=== PATIENT | male | born 1945 | race Caucasian/White ===

== ENCOUNTER 2020-11-16 10:23 | Inpatient (IN) | payer BC, OTHER ==
[~2020-11-16] VITALS: Ht 185.4 cm; Wt 74.8 kg
--- NOTE | 2020-11-16 10:30 | NUR ---
TO ER BED 1, C/O BACK PAIN P/S 610 S/P FALL 2 MOS AGO, AAOX4, BREATHING EVEN AND NON LABORED. AWAITING MD JENKINS
[2020-11-16] MEDS ORDERED: IV NS 0.9% 1,000 ML IV ONE (11:00)
--- NOTE | 2020-11-16 11:08 | NUR ---
SPOKE TO LISANDRO-DAUGHTER FOR UPDATE
[2020-11-16 11:12] LABS: BASOPHILS % (AUTO) 0.4 % (0.0-2.0); EOSINOPHILS % (AUTO) 0.4 % (0.0-6.0); HEMATOCRIT 46 % (39-51); HEMOGLOBIN 15.3 g/dL (13.5-17.5); LYMPHOCYTES # (AUTO) 1.7 K/uL (0.8-4.8); LYMPHOCYTES % (AUTO) 18.1 % (20.0-44.0); MEAN CORPUSCULAR HGB CONC 34 g/dl (31.0-36.0); MEAN CORPUSCULAR VOLUME 93 fL (80-96); MONOCYTES # (AUTO) 0.5 K/uL (0.1-1.30); MONOCYTES % (AUTO) 5.6 % (2.0-12.0); NEUTROPHILS # (AUTO) 7.2 K/uL (1.8-8.9); NEUTROPHILS % (AUTO) 75.5 % (43.0-81.0); PLATELET COUNT (AUTO) 412 K/uL (150-450); RED BLOOD CELL COUNT(AUTO) 4.94 MIL/uL (4.5-6.0); WHITE BLOOD COUNT (AUTO) 9.5 K/uL (4.3-11.0)
[2020-11-16 11:16] LABS: BILIRUBIN,URINE SMALL (NEGATIVE); COLOR,URINE YELLOW (YELLOW); LEUKOCYTE ESTERASE ,URINE Negative (NEGATIVE); NITRITE, URINE Negative (NEGATIVE); PH,URINE 5.5 (5.0-8.0); PROTEIN,URINE 30 mg/dl (NEGATIVE); UGLUCOSE Negative (NEGATIVE); UROBILINOGEN,URINE 0.2 EU/dL (0.2)
[2020-11-16 11:24] LABS: CALCIUM, SERUM 8.8 mg/dL (8.5-10.1); CREATININE 0.9 mg/dL (0.6-1.3)
[2020-11-16 11:29] LABS: ALBUMIN 3.7 g/dL (3.4-5.0); BILIRUBIN,DIRECT 0.2 mg/dL (0.0-0.2); BILIRUBIN,TOTAL 1.1 mg/dL (0.2-1.0); TOTAL PROTEIN, SERUM 8.5 g/dL (6.4-8.2)
[2020-11-16 11:35] LABS: BACTERIA,URINE None seen /HPF (None Seen); RBC,URINE 0-2 /HPF (0-2); SQUAMOUS EPITHELIAL CELL,UR Rare /HPF (None Seen); WBC,URINE NONE SEEN /HPF (0-3)
[2020-11-16] MEDS ORDERED: CYCLOBENZAPRINE 10 MG TABLET PO ONE (12:00)
[2020-11-16] MEDS ORDERED: KETOROLAC TROMETHAMINE INJ 30 MG/ML VIAL IV ONE (12:00)
[2020-11-16] MEDS ORDERED: CYCLOBENZAPRINE 10 MG TABLET ONE (12:07)
[2020-11-16] MEDS ORDERED: KETOROLAC TROMETHAMINE 15 MG/ML VIAL ONE (12:07)
[2020-11-16 13:11] LABS: THYROID STIMULATING HORMONE 1.212 uIU/mL (0.358-3.74)
[2020-11-16] MEDS ORDERED: ACET-868 PO (13:12)
[2020-11-16] MEDS ORDERED: CLON2TAB11 PO (13:12)
--- NOTE | 2020-11-16 13:19 | NUR ---
SPOKE TO DAUGHTER LISANDRO HU PT MED HISTORY, PT CONFIRMED HX OF HTN ONLY BUT NOT TAKING ANY BP MEDS
[2020-11-16] MEDS ORDERED: METOPROLOL TARTRATE INJ 5 MG/5 ML AMPUL ONE (13:28)
[2020-11-16] MEDS ORDERED: METOPROLOL TARTRATE INJ 5 MG/5 ML AMPUL IV ONE (13:30)
--- NOTE | 2020-11-16 14:17 | NUR ---
COVID SWAB DONE AND SENT TO LAB
--- NOTE | 2020-11-16 14:28 | NUR ---
CALLED [facility] GUZMAN.
[2020-11-16] MEDS ORDERED: METOPROLOL SUCCINATE 25 MG TAB.SR.24H PO SCH (14:30)
--- NOTE | 2020-11-16 15:18 | NUR ---
NURSING SUP GAVE 310-2 TELE.
[2020-11-16] MEDS ORDERED: MAGNESIUM HYDROXIDE 30 ML UDC PO PRN (16:00)
[2020-11-16] MEDS ORDERED: ZOLPIDEM TARTRATE 5 MG TABLET PO PRN (16:00)
[2020-11-16] MEDS ORDERED: MAG HYDROX/AL HYDROX/SIMETH 30 ML UDC PO PRN (16:00)
[2020-11-16] MEDS ORDERED: ONDANSETRON HCL/PF 4 MG/2 ML VIAL IVP PRN (16:00)
[2020-11-16] MEDS ORDERED: Z GUARD REMEDY 2 OZ OINT TP PRN (16:00)
--- NOTE | 2020-11-16 16:37 | NUR ---
CALLED DAUGHTER LISANDRO FOR UPDATE RE PT NEW ROOM BUT NO ANSWER
--- NOTE | 2020-11-16 16:37 | NUR ---
REPORT GIVEN TO XIOMY BLACK FOR DEE
--- NOTE | 2020-11-16 16:40 | NUR ---
PRODUCTION GRADER NOTE Pt is A/OX3, no respiratory distress, no SOB, on tele monitor showing sinus rhythm. Complains of mild back pain 3/10. Will administer tylenol PO. Safety precautions implemented, bed locked in lowest position, call light within reach.
[2020-11-16] MEDS: ACETAMINOPHEN 325 MG TABLET PO PRN (17:16)
[2020-11-16] MEDS: ENOXAPARIN SODIUM 40 MG/0.4 ML DISP.SYRIN SQ SCH (17:17)
[2020-11-16] MEDS: METOPROLOL TARTRATE 25 MG TABLET PO SCH (17:18)
[2020-11-16 18:00] VITALS: BP 135/75
--- NOTE | 2020-11-16 19:14 | NUR ---
CAVING GUIDE CLOSING NOTE Pt is A/O X 4, no respiratory distress, no SOB. Sinus rhythm A-fib, denies any chest pain or palpitations. Complains of pain relieved after administration of tylenol. Skin assessment done noted with skin abrasions on knees, and left shoulder. Safety precautions implemented, bed locked in lowest position, call light within reach.
--- NOTE | 2020-11-16 19:56 | NUR ---
sterile products processor Opening Notes Patient was last seen awake in bed resting. Pt is A/O X 4. Patient's on room air with no respiratory distress noted. Patient has an IV access on her RAC gauge# 20. Patient's connected to a tele monitor with no cardiac distress noted. Safety precautions implemented: Bed locked, bed alarm on, side rails upx3, and call light within reach of the patient Will continue to monitor the patient.
[2020-11-16 21:28] VITALS: BP 132/87
[2020-11-17] VITALS (7 sets, daily range): BP systolic 121–159; BP diastolic 41–91
--- NOTE | 2020-11-17 03:55 | NUR ---
meringuer Notes Hand off report and endorsement of care of the patient was given to Nurse Painter.
--- NOTE | 2020-11-17 06:19 | NUR ---
ALERT/ORIENTED X3, FORGETFUL, ROOM AIR, PAIN WITH MOVEMENT, AFIB CONTROLLED, STARTED ON METOPROLOL TO CONTROL BP, SEVERE COMPRESSION OF L1 PER CT, WILL NEED TLSO BRACE, PT EVAL, AM LABS, WOUND CARE CONSULT PENDING.
[2020-11-17 06:35] LABS: BASOPHILS % (AUTO) 0.3 % (0.0-2.0); EOSINOPHILS % (AUTO) 1.3 % (0.0-6.0); HEMATOCRIT 44 % (39-51); HEMOGLOBIN 14.9 g/dL (13.5-17.5); LYMPHOCYTES # (AUTO) 3.7 K/uL (0.8-4.8); LYMPHOCYTES % (AUTO) 40.1 % (20.0-44.0); MEAN CORPUSCULAR HGB CONC 34 g/dl (31.0-36.0); MEAN CORPUSCULAR VOLUME 93 fL (80-96); MONOCYTES # (AUTO) 0.5 K/uL (0.1-1.30); NEUTROPHILS # (AUTO) 4.8 K/uL (1.8-8.9); NEUTROPHILS % (AUTO) 52.3 % (43.0-81.0); PLATELET COUNT (AUTO) 376 K/uL (150-450); RED BLOOD CELL COUNT(AUTO) 4.72 MIL/uL (4.5-6.0); WHITE BLOOD COUNT (AUTO) 9.1 K/uL (4.3-11.0)
[2020-11-17 07:04] LABS: MAGNESIUM 2.2 mg/dL (1.8-2.4); PHOSPHORUS 3.9 mg/dL (2.5-4.9)
[2020-11-17 07:27] LABS: CALCIUM, SERUM 8.7 mg/dL (8.5-10.1); CREATININE 0.9 mg/dL (0.6-1.3)
--- NOTE | 2020-11-17 07:30 | NUR ---
LINE MAINTAINER NOTES RECEIVED PATIENT IN BED, AWAKE, A&O X3, WITH PERIODS OF FORGETFULNESS NOTED. ON ROOM AIR TOLERATING WELL, ON EXTERNAL MONITOR SHOWING CONTROLLED A-FIB HR ON 130'S. IN NO ACUTE DISTRESS NOTED. NO COMPLAINTS OF PAIN AT THIS TIME. SAFETY PRECAUTIONS IN PLACE: BED ON LOWEST LOCKED POSITION, SIDE RAILS UP X 2, KEPT CALL LIGHT WITHIN EASY REACH. WILL CONTINUE TO MONITOR ACCORDINGLY.
[2020-11-17] MEDS: PANTOPRAZOLE 40 MG TABLET.DR PO SCH (07:55)
[2020-11-17] MEDS: METOPROLOL TARTRATE 25 MG TABLET PO SCH ×3 (08:08→16:59)
--- NOTE | 2020-11-17 08:31 | NUR ---
TOOLROOM MACHINIST NOTES NOTED WITH HEART RATE AT 150'S. METOPROLOL GIVEN ORDERED. RECHECHED HR 30 MINUTES AFTER METOPROLOL, HR 132. DR. LEON AWARE. WITH ORDER MADE AND CARRIED OUT.
--- NOTE | 2020-11-17 09:52 | NUR ---
DELI/BAKERY ASSOCIATE NOTES TRANSFERRED PATIENT TO [facility] ROOM 111-1, REPORT GIVEN TO SARMAD FOR DEE.
--- NOTE | 2020-11-17 10:00 | NUR ---
[facility] , plced on tele monitor afib 134 dr mathias notified with order Cardizem drip , new hl on lt hand supriya 20 inserted with good blood return
--- NOTE | 2020-11-17 10:00 | NUR ---
wolf rn note patient received from [facility] unit alert with confusion,trying to remove lines . placed on 2l nc for comfort ,on tele monitor a fibhr 134 , rt ac hl intact and flushed well ,new hl on lt wrist placed supriya 22 with good blood return ,no sob noted no c\o chest pain , awaiting from dr leonard apple solutions consultant orders
[2020-11-17] MEDS: DILTIAZEM HCL IV 125 MG in IV NS 0.9% 100 ML IV PRN (10:51)
--- NOTE | 2020-11-17 12:04 | NUR ---
DESTINEY RN NOTE CONT ON CARDIZEM DRIP PER DR REBOLLEDO TO GIVE LOPRESSOR PO ALSO AWARE THAT HT AFIB 101
[2020-11-17 12:12] LABS: THYROID STIMULATING HORMONE 2.034 uIU/mL (0.358-3.74)
[2020-11-17] MEDS ORDERED: clonazePAM 2 MG TABLET PO PRN (13:30)
--- NOTE | 2020-11-17 15:00 | NUR ---
television actor note cont on Cardizem drip as ordered, no c\o chest discomfort
--- NOTE | 2020-11-17 16:00 | NUR ---
DESTINEY RN NOTE ROUNDS MADE ,PATIENT ALERT WITH CONFUSION , TRYING TO REMOVE ALL LINES, ALL NEEDS ATTENDED , CONT ON CARDIZEM DRIP ORDERED, CALL LIGHT WITHIN REACH ,SPOKE WIT DAUGHTER UPDATED PATIENT CONDITION
--- NOTE | 2020-11-17 18:36 | NUR ---
DESTINEY RN NOTE ALL NEEDS ATTENDED ,FED BY MANAGER STATE ATE 100% DIET , NO SOB NOTED, CONT ON CARDIZEM DRIP 5MG HR, AFIB 101 AT THIS TIME , WILL CONT TO MONITOR CLOSELY
--- NOTE | 2020-11-17 20:00 | NUR ---
wolf rn note Patient received in bed alert with confusion,trying to get out of bed . on 2l o2 via nc sating 95% ,on tele monitor afib controlled 103 Pts on cardizem drip at 5mg/hr no ase noted . with iv line on right ac G #20 and left wrist G#22 intact and patent flushed well ,no sob no distress noted no c\o chest pain , all needs attended too call light within reach lept pts clean dry and comfortable , v/s stable afebrile , kept bed on low and locked position .will continue to monitor pts.
[2020-11-17] MEDS: ENOXAPARIN SODIUM 40 MG/0.4 ML DISP.SYRIN SQ SCH (20:44)
[2020-11-18] VITALS: BP 150/93
[2020-11-18 04:00] VITALS: BP 102/69
[2020-11-18 06:42] LABS: CALCIUM, SERUM 8.6 mg/dL (8.5-10.1); CREATININE 0.8 mg/dL (0.6-1.3); MAGNESIUM 2.1 mg/dL (1.8-2.4); PHOSPHORUS 4.3 mg/dL (2.5-4.9); POTASSIUM 4.1 mmol/L (3.5-5.1)
[2020-11-18 07:02] LABS: BASOPHILS % (AUTO) 0.3 % (0.0-2.0); EOSINOPHILS % (AUTO) 0.6 % (0.0-6.0); HEMATOCRIT 43 % (39-51); HEMOGLOBIN 14.6 g/dL (13.5-17.5); LYMPHOCYTES # (AUTO) 3.6 K/uL (0.8-4.8); LYMPHOCYTES % (AUTO) 32.2 % (20.0-44.0); MEAN CORPUSCULAR HGB CONC 34 g/dl (31.0-36.0); MEAN CORPUSCULAR VOLUME 93 fL (80-96); MONOCYTES # (AUTO) 0.8 K/uL (0.1-1.30); MONOCYTES % (AUTO) 7.4 % (2.0-12.0); NEUTROPHILS # (AUTO) 6.8 K/uL (1.8-8.9); NEUTROPHILS % (AUTO) 59.5 % (43.0-81.0); PLATELET COUNT (AUTO) 360 K/uL (150-450); RED BLOOD CELL COUNT(AUTO) 4.67 MIL/uL (4.5-6.0); WHITE BLOOD COUNT (AUTO) 11.3 K/uL (4.3-11.0)
[2020-11-18] MEDS: DILTIAZEM HCL IV 125 MG in IV NS 0.9% 100 ML IV PRN (07:08)
--- NOTE | 2020-11-18 07:16 | NUR ---
DESTINEY RN NOTES PTS REMAIN ON CARDIZEM DRIP AT 5MG/HR WITH HR OF 105 NO SOB NO DISTRESS NOTED ALL NEEDS MEET. WILL ENDORSE TO NIDHI RN DAY SHIFT FOR CONTINUITY OF CARE.
[2020-11-18 08:00] VITALS: BP 145/69
[2020-11-18] MEDS: PANTOPRAZOLE 40 MG TABLET.DR PO SCH (08:00)
[2020-11-18] MEDS: METOPROLOL TARTRATE 25 MG TABLET PO SCH ×3 (08:11→17:00)
--- NOTE | 2020-11-18 09:10 | NUR ---
LEATHER GOODS I ASSEMBLERWAYNE JAY DOWNGRADE TO TELEMETRY PER DR. MARIE
--- NOTE | 2020-11-18 09:29 | NUR ---
WOUND CARE CONSULT: PT PRESENTS WITH DRY SCABS TO BILATERAL KNEES, PRESENT ON ADMISSION. NO DRAINAGE, ERYTHEMA OR TENDERNESS NOTED. RECOMMENDATIONS MADE FOR SKIN PROTECTION. DISCUSSED WITH NURSING STAFF. MD IN AGREEMENT WITH PLAN OF CARE.
--- NOTE | 2020-11-18 10:33 | NUR ---
RN NOTES SPOKE WITH JOSEF FOR TLSO BRACE AND PROVIDED [facility] NUMBER. PLACED A CALL TO [facility], SPOKE WITH AWILDA, ACCORDING TO HER , CENTRAL SUPPLY NEEDS TO CALL THEM FOR A P.O TO PROCESS EVERYTHING. PATIENT'S INFO AND MD ORDER FAXED TO [facility].
[2020-11-18 12:00] VITALS: BP 141/83
--- NOTE | 2020-11-18 12:01 | NUR ---
RN NOTES EKG RESULT SENT TO DR. MARIE. NO NEW ORDERS.
[2020-11-18] MEDS: ACETAMINOPHEN 325 MG TABLET PO PRN ×2 (14:52→23:13)
[2020-11-18 16:00] VITALS: BP 137/109
--- NOTE | 2020-11-18 17:03 | NUR ---
RN NOTES PATIENT PULLED OUT HIS IV. RESTARTED ON LEFT FA G 22. GOOD BLOOD RETURN.
--- NOTE | 2020-11-18 17:32 | NUR ---
RN NOTES placed a call to [facility], left a message regarding TLSO brace. For PO - Its gonna be Stephanie Nelson Nursing Finishing Machine Operator.
--- NOTE | 2020-11-18 19:30 | NUR ---
CHAIN DYER OPENING NOTE RECEIVED PT AWAKE IN BED. A/O X2 WITH PERIODS OF CONFUSION. PT IS ON 2LPM O2 VIA NC TOLERATING WELL. NO SOB OR S/S OF RESPIRATORY DISTRESS NOTED. PT HAS NO S/O PAIN SUCH FACIAL GRIMACING AT THIS TIME. IV ACCESS NOTED IN LFA #22, INTACT AND PATENT. SAFETY PRECAUTIONS MAINTAINED. BED IN LOWEST LOCKED POSITION, HOB ELEVATED, SIDE RAILS UP X2. CALL LIGHT AND TABLE WITHIN REACH. WILL CONTINUE WITH PLAN OF CARE.
[2020-11-18 20:00] VITALS: BP_SYST 137; BP_DIAS 109; BP_DIAS 72
[2020-11-18] MEDS: ENOXAPARIN SODIUM 40 MG/0.4 ML DISP.SYRIN SQ SCH (20:14)
[2020-11-19] VITALS: BP 142/84
--- NOTE | 2020-11-19 00:15 | NUR ---
DESTINEY RN NOTES PTS STATUS CHANGED [facility] STATUS D/ T CARI DRIP WITH HR NOW 117-120S WILL CONTINUE TO MONITOR.
--- NOTE | 2020-11-19 00:57 | NUR ---
STEEL UNLOADER NOTES PTS BEEN NOTED ON THE MONITOR HR 140 -160 , PTS IS AWAKE ALERT NO SOB NO DISTRESS NOTED ,V/ S STABLE AFEBRILE ,RELAYED TO DR CRAWLEY WITH ORDER MADE AND CARRIED OUT , EKG STAT ,WILL FAX RESULT TO HIM. WILL CONTINUE TO MONITOR.
--- NOTE | 2020-11-19 01:05 | NUR ---
COMPUTER TECHNOLOGY TRAINER NOTES EKG RESULT ST RELAYED TO DR CRAWLEY WITH ORDER NOTED AND CARRIED OUT , START CARDIZEM DRIP TO 5MG/HR NO TITRATION .WILL CONTINUE TO MONITOR PTS.
[2020-11-19] MEDS ORDERED: DILTIAZEM HCL IV 125 MG in IV NS 0.9% 100 ML IV PRN (01:30)
[2020-11-19] MEDS ORDERED: DILTIAZEM HCL 25 MG IV ONE ×3 (01:45→01:47)
--- NOTE | 2020-11-19 02:20 | NUR ---
TRANSFERRED PT AND GAVE REPORT TO JOHN BLACK FOR DEE.
--- NOTE | 2020-11-19 02:21 | NUR ---
RN NOTE RECEIVED PATINET ON [facility] MONITORING ALERT CONFUSED VERBALLY RESPONSIVE ON 2L OXYGEN VIA NASAL CANNULA O2:96% IV SITE IS ON LEFT FOREARM INTACT PATENT ON CARDIZEM DRIP 5ML/HR FOR UNCONTROLLED A-FIB SAFETY MEASURE IMPLEMENT BED IN LOW POSITON AND LOCKED CONTINUE TO MONITOR.
[2020-11-19 04:00] VITALS: BP 122/68
--- NOTE | 2020-11-19 06:04 | NUR ---
RT EKG DONE, RESULTS GIVEN TO JOHN BLACK
--- NOTE | 2020-11-19 06:54 | NUR ---
RN NOTE PATIENT REMAINS ALERT CONFUSED VERBALLY RESPONSIVE ON 2L OXYGEN VIA NASAL CANNULA O2:96% IV SITE IS ON LEFT FOREARM INTACT PATENT ON CARDIZEM DRIP 5ML/HR FOR UNCONTROLLED A-FIB NO SOB NOT ACUTE DISTRESS NOTED ENDORSE NEXT COMING SHIFT FOR CONTINUATION OF CARE
[2020-11-19 07:04] LABS: CALCIUM, SERUM 8.6 mg/dL (8.5-10.1); CREATININE 0.8 mg/dL (0.6-1.3); MAGNESIUM 2.1 mg/dL (1.8-2.4); PHOSPHORUS 4.1 mg/dL (2.5-4.9); POTASSIUM 3.8 mmol/L (3.5-5.1)
--- NOTE | 2020-11-19 07:15 | NUR ---
RN OPENING NOTE Received patient asleep in bed appears calm and relaxed. No signs of distress. On NC 2L tolerating well. Patient is AOx2-3 confused but verbally responsive with clear speech. 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 Patient is A-fib controlled. HR 107bpm. On a diaper but uses a urinal. Has LFA #22 and RAC #20 flushes well. Safety measures maintained. Call light within reach. Will cont to monitor.
[2020-11-19 07:27] LABS: BASOPHILS % (AUTO) 0.4 % (0.0-2.0); EOSINOPHILS % (AUTO) 0.8 % (0.0-6.0); HEMATOCRIT 43 % (39-51); HEMOGLOBIN 14.5 g/dL (13.5-17.5); LYMPHOCYTES # (AUTO) 3.9 K/uL (0.8-4.8); LYMPHOCYTES % (AUTO) 37.4 % (20.0-44.0); MEAN CORPUSCULAR HGB CONC 34 g/dl (31.0-36.0); MEAN CORPUSCULAR VOLUME 93 fL (80-96); MONOCYTES # (AUTO) 0.9 K/uL (0.1-1.30); MONOCYTES % (AUTO) 8.4 % (2.0-12.0); NEUTROPHILS # (AUTO) 5.5 K/uL (1.8-8.9); PLATELET COUNT (AUTO) 383 K/uL (150-450); RED BLOOD CELL COUNT(AUTO) 4.64 MIL/uL (4.5-6.0); WHITE BLOOD COUNT (AUTO) 10.4 K/uL (4.3-11.0)
[2020-11-19 08:00] VITALS: BP 126/81
[2020-11-19] MEDS: PANTOPRAZOLE 40 MG TABLET.DR PO SCH (08:15)
[2020-11-19] MEDS: METOPROLOL TARTRATE 25 MG TABLET PO SCH ×5 (08:18→23:47)
--- NOTE | 2020-11-19 09:15 | NUR ---
Metoprolol 50mg TID was dc and changed to Metoprolol 50mg q6h. Non admin the Metoprolol 50 mg q6h at 9am because already given the TID first dose,.
[2020-11-19] MEDS: DIGOXIN INJ 0.5 MG/2 ML AMPUL IV SCH ×3 (11:24→23:22)
[2020-11-19 12:00] VITALS: BP 136/88
[2020-11-19 16:00] VITALS: BP 157/91
[2020-11-19] MEDS: ACETAMINOPHEN 325 MG TABLET PO PRN (17:08)
--- NOTE | 2020-11-19 19:07 | NUR ---
RN CLOSING NOTE Patient in bed awake calm and relaxed. NC 2L tolerating well. No c/o pain or discomfort. Tele reading ST 100-110. All due meds given. Vital signs within normal limits. All needs met. Report given to night shift manager nurse for bianka.
--- NOTE | 2020-11-19 19:10 | NUR ---
RN NOTE RECEIVED PATIENT IN BED RESTING ALERT ORIENTED X2 VERBALLY RESPONSIVE ON 2L OXYGEN VIA NASAL CANNULA,O2:96%,INCONTINENT BOWEL/BLADDER. IV SITES ARE RIGHT AC AND LEFT FOREARM BOTH INFILTRATED,REMOVED THEM,APPLIED COLD PACK,ELEVATED BOTH ARM,SAFETY MEASURE IMPLEMENT BED IN LOW POSITION AND LOCKED CALL LIGHT WITHIN REACH, CONTINUE TO MONITOR.
--- NOTE | 2020-11-19 19:45 | NUR ---
RN NOTE START A NEW IV LINE ON RIGHT FOREARM WITH 20G,WITH GOOD BLOOD RETURN NO SWELLING NO INFILTRATION,CONTINUE TO MONITOR.
[2020-11-19 20:00] VITALS: BP 148/90
[2020-11-19] MEDS: ENOXAPARIN SODIUM 40 MG/0.4 ML DISP.SYRIN SQ SCH (20:18)
[2020-11-20] VITALS: BP 142/85
[2020-11-20 04:00] VITALS: BP 139/78
[2020-11-20] MEDS: METOPROLOL TARTRATE 25 MG TABLET PO SCH ×3 (05:48→17:47)
[2020-11-20 06:27] LABS: BASOPHILS % (AUTO) 0.4 % (0.0-2.0); EOSINOPHILS % (AUTO) 0.8 % (0.0-6.0); HEMATOCRIT 45 % (39-51); HEMOGLOBIN 15.1 g/dL (13.5-17.5); LYMPHOCYTES # (AUTO) 2.7 K/uL (0.8-4.8); LYMPHOCYTES % (AUTO) 24.6 % (20.0-44.0); MEAN CORPUSCULAR HGB CONC 33 g/dl (31.0-36.0); MEAN CORPUSCULAR VOLUME 93 fL (80-96); MONOCYTES # (AUTO) 0.9 K/uL (0.1-1.30); MONOCYTES % (AUTO) 7.7 % (2.0-12.0); NEUTROPHILS # (AUTO) 7.4 K/uL (1.8-8.9); NEUTROPHILS % (AUTO) 66.5 % (43.0-81.0); PLATELET COUNT (AUTO) 372 K/uL (150-450); RED BLOOD CELL COUNT(AUTO) 4.86 MIL/uL (4.5-6.0); WHITE BLOOD COUNT (AUTO) 11.1 K/uL (4.3-11.0)
--- NOTE | 2020-11-20 06:46 | NUR ---
RN NOTE PATIENT REMAINS ON ALERT ORIENTED X2 VERBALLY RESPONSIVE NO SOB NOT ACUTE DISTRESS NOTED HE IS ON 2L OXYGEN VIA NASAL CANNULA O2:96% KEPT CLEAN AND DRY ALL THE TIME KEPT COMFORTABLE ALL NEEDS MET. ENDORSE NEXT COMING SHIFT FOR CONTINUATION OF CARE.
[2020-11-20 07:36] LABS: CREATININE 0.8 mg/dL (0.6-1.3); MAGNESIUM 2.1 mg/dL (1.8-2.4); PHOSPHORUS 3.3 mg/dL (2.5-4.9); POTASSIUM 3.8 mmol/L (3.5-5.1)
[2020-11-20 07:46] LABS: CALCIUM, SERUM 8.2 mg/dL (8.5-10.1)
[2020-11-20] MEDS: PANTOPRAZOLE 40 MG TABLET.DR PO SCH (07:48)
[2020-11-20 08:00] VITALS: BP 131/68
--- NOTE | 2020-11-20 08:01 | NUR ---
TELE NURSE OPENING NOTE. RECEIVE REPORT FROM [facility] SHIFT NURSE. PATIENT IS STABLE. A/O X2. PATIENT PRESENT WITH A-FIB CARDIAC RHYTHM. UPON ASSESSMENT, PATIENT IS STABLE WITH NO SIGN OF DISTRESS. COMFORT MEASURE PROVIDED. BED ALARM ON AND PUT IN THE LOWEST POSITION WITH 3 SIDE RAIL UP. WILL CONTINUE TO MONITOR.
[2020-11-20 12:00] VITALS: BP 127/77
[2020-11-20] MEDS ORDERED: DIGOXIN 0.25 MG TABLET PO SCH (13:00)
--- NOTE | 2020-11-20 15:14 | NUR ---
TELE NURSE NOTE. PATIENT IS SCHEDULE TO BE DISCHARGE TO [facility]. REPORT WAS GIVEN TO GWEN BLACK.
[2020-11-20] MEDS ORDERED: Digoxin PO (15:29)
[2020-11-20] MEDS ORDERED: METO25TA20 PO (15:29)
[2020-11-20 16:00] VITALS: BP 140/68
--- NOTE | 2020-11-20 18:48 | NUR ---
NURSE CLOSING NOTE PATIENT ALERT ORIENTATED X2. SHOWS SIGNS OF CONFUSION AT TIME. PATIENT MAINTAIN STABLE VITAL SIGNS THROUGH OUT SHIFT. PATIENT WILL BE DISCHARGED TO [facility]. DAUGHTER WAS NOTIFIED. ALL DISCHARGED PAPER WORK PRINTED AND SIGNED. ALL BELONGING ACCOUNTED FOR. PATIENT WAS TURNED ACCORDING TO HOSPITAL POLICY. BED SHEET WAS CHANGED. BED PUT IN THE LOWEST POSITION WITH 3 RAILS UP. HEAD OF THE BED ELEVATED. WILL CONTINUE TO MONITOR AND ENDORSE TO ON COMING NURSE.
[2020-11-20 20:00] VITALS: BP 145/73
--- NOTE | 2020-11-20 20:01 | NUR ---
RN NOTE PATIENT ALERT AND ORIENTED X2, PERIODS OF CONFUSION. ON O2 2L VIA NASAL CANNULA, NO SIGNS OF RESPIRATORY DISTRESS. FOR DISCHARGE TONIGHT, WILL WAIT FOR ARRIVAL OF TRANSPORTATION.
[2020-11-20] MEDS: ENOXAPARIN SODIUM 40 MG/0.4 ML DISP.SYRIN SQ SCH (20:17)
--- NOTE | 2020-11-20 20:35 | NUR ---
PATIENT DISCHARGED TO [facility] VIA [facility] ACCOMPANIED WITH 2 TOMATO PULPER OPERATOR. ALL DISCHARGE PAPERWORKS AND BELONGINGS TRANSFERRED WITH PATIENT. VITAL SIGNS STABLE.
== END 2020-11-20 20:35 | DRG 309 ==
LOC: ER 10:26 → TELE 15:58 → TELE-TD 11-17 08:52 → TELE1 11-18 10:13 → TELE-TD 11-19 02:20 → TELE1 11-20 09:35
PROVIDERS: ADMIT Student in an Organized Health Care Education/Training Program; ATTEND Student in an Organized Health Care Education/Training Program
DX: I48.91 Unspecified atrial fibrillation (principal); M48.56XA Collapsed vertebra, not elsewhere classified, lumbar region, initial encounter for fracture; J98.11 Atelectasis; I50.22 Chronic systolic (congestive) heart failure; E86.0 Dehydration; Z20.822 Contact with and (suspected) exposure to COVID-19; Z88.0 Allergy status to penicillin; Z79.899 Other long term (current) drug therapy; G89.29 Other chronic pain; M41.9 Scoliosis, unspecified; R79.89 Other specified abnormal findings of blood chemistry; Z91.81 History of falling
CPT/HCPCS: 36415; 71045-TC; 72131-TC; 72148-TC; 80048-TC; 80061-TC; 80076-TC; 81001; 82550-TC; 83690-TC; 83735-TC; 83880; 84100-TC; 84439-TC; 84443-TC; 84484-TC; 85025-TC; 87081-TC; 93307-TC; 97112-TC; 97530-TC; G0378; J1160; J1650; J1885; J3490; J7030

== ENCOUNTER 2021-01-20 18:37 | Inpatient (IN) | payer OTHER ==
[~2021-01-20] VITALS: Ht 190.5 cm; Wt 69.0 kg
[~2021-01-20 18:37] MED LIST: ACET-868 PO; CLON2TAB11 PO; Digoxin PO; METO25TA20 PO
--- NOTE | 2021-01-20 19:45 | NUR ---
PATIENT CAME IN S/P FALL. FELL AT HOME WHILE TRANSFERING FROM WHEELCHAIR TO BED. C/O LOWER BACK PAIN
[2021-01-20 22:22] LABS: BASOPHILS # (AUTO) 0.1 K/uL (0.0-0.2); BASOPHILS % (AUTO) 0.5 % (0.0-2.0); EOSINOPHILS % (AUTO) 1.3 % (0.0-6.0); HEMATOCRIT 43 % (39-51); HEMOGLOBIN 14.5 g/dL (13.5-17.5); LYMPHOCYTES # (AUTO) 3.5 K/uL (0.8-4.8); LYMPHOCYTES % (AUTO) 32.5 % (20.0-44.0); MEAN CORPUSCULAR HGB CONC 34 g/dl (31.0-36.0); MEAN CORPUSCULAR VOLUME 90 fL (80-96); MONOCYTES # (AUTO) 0.7 K/uL (0.1-1.30); MONOCYTES % (AUTO) 6.4 % (2.0-12.0); NEUTROPHILS # (AUTO) 6.4 K/uL (1.8-8.9); NEUTROPHILS % (AUTO) 59.3 % (43.0-81.0); PLATELET COUNT (AUTO) 502 K/uL (150-450); RED BLOOD CELL COUNT(AUTO) 4.78 MIL/uL (4.5-6.0); WHITE BLOOD COUNT (AUTO) 10.7 K/uL (4.3-11.0)
[2021-01-20 22:31] LABS: CALCIUM, SERUM 8.4 mg/dL (8.5-10.1); CARBON DIOXIDE 26 mmol/L (21-32); CHLORIDE 104 mmol/L (98-107); GLUCOSE 103 mg/dL (74-106); POTASSIUM 4.3 mmol/L (3.5-5.1); SODIUM SERUM 140 mmol/L (136-145); UREA NITROGEN, BLOOD 20 mg/dL (7-18)
[2021-01-20 23:42] LABS: BILIRUBIN,DIRECT 0.2 mg/dL (0.0-0.2); BILIRUBIN,TOTAL 0.7 mg/dL (0.2-1.0); TOTAL PROTEIN, SERUM 7.1 g/dL (6.4-8.2)
[2021-01-21 00:11] LABS: DIGOXIN 0.43 ng/mL (0.90-2.00)
--- NOTE | 2021-01-21 02:29 | NUR ---
LINCOLN PRESS OPERATOR INSTANT PRINT SHOP PAGED.
[2021-01-21] MEDS ORDERED: HYDROCODONE/APAP 10/325MG TABLET PO ONE (03:00)
[2021-01-21] MEDS ORDERED: ONDANSETRON HCL/PF - ER 4 MG/2 ML VIAL IV ONE (03:00)
[2021-01-21] MEDS ORDERED: IV D5/0.45 NACL 1,000 ML IV ONE (03:00)
[2021-01-21] MEDS ORDERED: HYDROCODONE/APAP 10/325MG TABLET ONE (03:12)
[2021-01-21] MEDS ORDERED: ONDANSETRON HCL/PF 4 MG/2 ML VIAL ONE (03:12)
--- NOTE | 2021-01-21 03:50 | NUR ---
DR. FARRIS CALLED BUT RESPONDED TO ICU FOR A PROCEDURE.
--- NOTE | 2021-01-21 03:59 | NUR ---
BRITTANY GÓMEZ TALKING TO LINCOLN GÓMEZ
--- NOTE | 2021-01-21 04:59 | NUR ---
ADRI STARK CALLED REQUESTING FACE SHEET WITH NOTES FAX TO [phone]
--- NOTE | 2021-01-21 05:37 | NUR ---
clinicals faxed to senior case manager
--- NOTE | 2021-01-21 06:12 | NUR ---
TRACKING NUMBER: [id number]
--- NOTE | 2021-01-21 06:12 | NUR ---
SPOKE WITH ADRI ACID CORRECTION HAND. PT IS GOING TO BE TRANSFER BUT STILL AWAITING FOR BED.
--- NOTE | 2021-01-21 06:13 | NUR ---
ADRI, EDITING INTERN [phone] OR [phone]
--- NOTE | 2021-01-21 07:31 | NUR ---
REPORT GIVEN TO MANJEET FOR CONTINUATION OF CARE
[2021-01-21] MEDS ORDERED: METO25TA4 PO (08:17)
[2021-01-21] MEDS ORDERED: DIGO125T PO (08:17)
[2021-01-21] MEDS ORDERED: ONDANSETRON HCL/PF 4 MG/2 ML VIAL IVP PRN (12:30)
[2021-01-21] MEDS ORDERED: ACETAMINOPHEN 325 MG TABLET PO PRN (12:30)
[2021-01-21] MEDS ORDERED: IV NS 0.9% 1,000 ML IV PRN (12:30)
[2021-01-21] MEDS ORDERED: HYDROCODONE/APAP 5/325MG TABLET ONE (16:19)
[2021-01-21] MEDS: HYDROCODONE/APAP 5/325MG TABLET PO PRN (16:23)
[2021-01-21] MEDS ORDERED: MORPHINE SULFATE INJ 2 MG/ML DISP.SYRIN IV PRN (16:30)
--- NOTE | 2021-01-21 16:39 | NUR ---
Dr. patton at bedside for eval.
--- NOTE | 2021-01-21 16:44 | NUR ---
Informed Cha SYSTEM SALES CONSULTANT in regards with patient HR and digoxin medication and ordered to start now. Called pharmacy and spoke to Sangeeta and will change the start order for today.
[2021-01-21] MEDS ORDERED: DIGOXIN 0.125 MG TABLET ONE (16:47)
[2021-01-21] MEDS: DIGOXIN 0.125 MG TABLET PO SCH (16:50)
--- NOTE | 2021-01-21 17:41 | NUR ---
bed assigned 326-2 for next shift
--- NOTE | 2021-01-21 19:09 | NUR ---
report given to loco aponte
--- NOTE | 2021-01-21 19:43 | NUR ---
CALLED 3 WEST REPORT GIVEN. PT TO GO TO ROOM 326-2
[2021-01-21 20:00] VITALS: BP 115/64
--- NOTE | 2021-01-21 20:15 | NUR ---
PT TRANSFERRED VIA ACLS PROTOCOL
--- NOTE | 2021-01-21 20:20 | NUR ---
RESIDENTIAL TEAM LEADER NOTES PT ARRIVED TO UNIT ESCORTED BY RN AND EMT. PT A/OX4 PT REPORTS PAIN WHEN MOVED PT REFUSED PAIN MEDICATION AT THIS TIME AND STATED " I JUST NEED YOU TO LAY ME FLAT AND NOT MOVE ME THAT IS THE ONLY TIME WHEN IM IN PAIN." PT TRANSFERRED TO BED WITH THE HELP OF THREE STAFF MEMBERS PT TOLERATED WELL. PT IS S/P FALL WITH SYNCOPAL EPISODE PER PT THIS HAS BEEN HAPPENING AN EPISODE AT LEAST ONCE A MONTH HE HAS ADDRESSED IT WITH HIS PCP BUT IS UNABLE TO RECALL THE REASON HIS PCP SAID IT COULD BE HAPPENING. PT HAS IV ACCESS ON THE R WRIST 22G S/L FLUSHED WELL. PT HAS NO REDNESS OR DISCOLORATION ON THE ANTERIOR PART OF HIS BODY PT REFUSED TO HAVE ME CHECK HIS POSTERIOR PT STATED" ITS TOO PAINFUL I DON'T WANT YOU TO MOVE ME RIGHT NOW" WILL TRY AGAIN LATER. PT BELONGINGS CHECKED AND VERIFIED WITH PT. PT ORIENTED TO ROOM AND UNIT. CALL LIGHT PLACED WITHIN REACH. BEDSIDE TABLE WITHIN REACH. WILL CONTINUE TO MONITOR.
[2021-01-21 21:30] VITALS: BP 115/64
[2021-01-22] VITALS: BP 141/58
[2021-01-22] MEDS: HYDROCODONE/APAP 5/325MG TABLET PO PRN ×4 (00:38→18:04)
--- NOTE | 2021-01-22 00:50 | NUR ---
RN NOTES PRN NORCO GIVEN FOR PAIN 5/10 ON A NUMERIC PAIN SCALE PT TOLERATED WELL.WILL CONTINUE TO MONITOR.
--- NOTE | 2021-01-22 04:51 | NUR ---
RT EKG PER ORDER DONE. RESULTS GIVEN TO WAYNE LAWRENCE
--- NOTE | 2021-01-22 06:21 | NUR ---
RN NOTES PRN NORCO GIVEN FOR PAIN 5/10 ON A NUMERIC PAIN SCALE PT TOLERATED WELL.WILL CONTINUE TO MONITOR.
[2021-01-22 06:32] LABS: BASOPHILS % (AUTO) 0.5 % (0.0-2.0); EOSINOPHILS % (AUTO) 3.3 % (0.0-6.0); HEMATOCRIT 40 % (39-51); HEMOGLOBIN 13.6 g/dL (13.5-17.5); LYMPHOCYTES % (AUTO) 47.5 % (20.0-44.0); MEAN CORPUSCULAR HGB CONC 34 g/dl (31.0-36.0); MEAN CORPUSCULAR VOLUME 91 fL (80-96); MONOCYTES # (AUTO) 0.6 K/uL (0.1-1.30); MONOCYTES % (AUTO) 7.6 % (2.0-12.0); NEUTROPHILS # (AUTO) 3.4 K/uL (1.8-8.9); NEUTROPHILS % (AUTO) 41.1 % (43.0-81.0); PLATELET COUNT (AUTO) 443 K/uL (150-450); RED BLOOD CELL COUNT(AUTO) 4.44 MIL/uL (4.5-6.0); WHITE BLOOD COUNT (AUTO) 8.4 K/uL (4.3-11.0)
--- NOTE | 2021-01-22 06:43 | NUR ---
MANGANESE BREAKER CLOSING NOTES PT A/OX4 PT REPORTS PAIN PRN NORCO GIVEN AND TOLERATED WELL. PT HAS IV ACCESS ON THE R WRIST 22G S/L FLUSHED WELL. PT BODY CHECK DONE NO WOUND NOTED. PT KEPT CLEAN AND DRY AT ALL TIMES. CALL LIGHT PLACED WITHIN REACH. BEDSIDE TABLE WITHIN REACH. WILL ENDORSE CARE TO DAY SHIFT NURSE.
[2021-01-22 06:46] LABS: ALANINE AMINOTRANSFERASE 80 U/L (12-78); ALBUMIN 2.9 g/dL (3.4-5.0); ALKALINE PHOSPHATASE 124 U/L (46-116); ASPARTATE AMINOTRANSFERASE 33 U/L (15-37); BILIRUBIN,TOTAL 0.9 mg/dL (0.2-1.0); CALCIUM, SERUM 8.1 mg/dL (8.5-10.1); CARBON DIOXIDE 27 mmol/L (21-32); CHLORIDE 105 mmol/L (98-107); CREATININE 0.9 mg/dL (0.6-1.3); GLUCOSE 91 mg/dL (74-106); MAGNESIUM 2.3 mg/dL (1.8-2.4); PHOSPHORUS 4.1 mg/dL (2.5-4.9); POTASSIUM 4.5 mmol/L (3.5-5.1); SODIUM SERUM 139 mmol/L (136-145); TOTAL PROTEIN, SERUM 7.1 g/dL (6.4-8.2); UREA NITROGEN, BLOOD 17 mg/dL (7-18)
[2021-01-22 10:00] VITALS: BP 126/73
[2021-01-22] MEDS ORDERED: DIGOXIN 0.125 MG TABLET PO SCH (13:00)
[2021-01-22] MEDS: DIGOXIN 0.125 MG TABLET PO SCH (13:53)
--- NOTE | 2021-01-22 19:00 | NUR ---
ALTERATION MANAGER OPENING NOTE RECEIVED PT IN BED A/O X4. AWAKE AND RESTING. PT IS ON EXTERNAL HOTEL RECREATIONAL FACILITIES MANAGER AFIB CONTROLLED @ 76, NO SOB OR RESPIRATORY DISTRESS NOTED, NO C/O PAIN AT THIS TIME. RESPIRATIONS EVEN AND UNLABORED. IV ACCESS NOTED IN RIGHT HAND G#22. FALL AND SAFETY MEASURES IN PLACE AND MAINTAINED AT ALL TIMES. BED ALARM, BED IN LOW AND LOCKED POSITION, HOB ELEVATED TO SEMI FOWLERS POSITION, CALL LIGHT AND TABLE WITHIN REACH. SIDE RAILS UP X2. WILL CONTINUE WITH PLAN OF CARE.
[2021-01-23] VITALS: BP 135/85
[2021-01-23 04:00] VITALS: BP 141/65
--- NOTE | 2021-01-23 06:35 | NUR ---
BAND SAW MARKER CLOSING NOTE PT IS RESTING IN BED, EASILY AROUSED AT THIS TIME. A/OX4. PT IS BEDREST, STABLE ON ROOM AIR. NO SOB NOTED OR RESPIRATORY DISTRESS. PT IS ON EXTERNAL VBA DEVELOPER READING A FIB UNCONTROLLED 118. PT DENIES PAIN OR DISCOMFORT AT THIS TIME. PT REPOSITIONED Q 2HRS. IV ACCESS IS INTACT, PATENT AND FLUSHING WELL. ALL NEEDS MET, PAIN MANAGEMENT ADMINISTERED PER ORDER, SAFETY, SEIZURE, AND ASPIRATION PRECAUTIONS MAINTAINED AT ALL TIMES. BED IN LOWEST, LOCKED POSITION WITH BED ALARM ON, SIDE RAILS PADDED AND UP X2. HOB ELEVATED. CALL LIGHT AND TABLE WITHIN REACH. WILL ENDORSE TO ONCOMING NURSE FOR DEE.
--- NOTE | 2021-01-23 07:28 | NUR ---
BLACK TOP PAVER OPERATOR OPENING NOTES RECEIVED PT AWAKE IN BED IN NO ACUTE SIGNS OF DISTRESS. A/O X4. ABLE TO MAKE NEEDS KNOWN, DENIES PAIN OR ANY DISCOMFORTS AT THIS TIME. ON ROOM AIR, RESPIRATIONS EVEN AND UNLABORED. ON EXTERNAL CHAIR PAD MAKER WITH CURRENT READING OF A-FIB UNCONTROLLED, WITH OF HR 110, NO C/O CARDIAC DISTRESS VOICED AT THIS TIME. IV SL ON RIGHT HAND G# 22 INTACT, PATENT AND FLUSHES WELL. SAFETY MEASURES IN PLACE: BED IN LOW AND LOCKED POSITION, CALL LIGHT AND BEDSIDE TABLE WITHIN REACH. SIDE RAILS UP X2. WILL CONTINUE TO MONITOR PT ACCORDINGLY.
[2021-01-23 08:00] VITALS: BP 150/81
[2021-01-23] MEDS: DILTIAZEM HCL CD 240 MG PO SCH (09:21)
[2021-01-23 12:00] VITALS: BP 163/119
[2021-01-23] MEDS ORDERED: ENOXAPARIN SODIUM 40 MG/0.4 ML DISP.SYRIN SQ SCH (12:30)
[2021-01-23] MEDS: DIGOXIN 0.125 MG TABLET PO SCH (12:38)
[2021-01-23 16:00] VITALS: BP 124/75
--- NOTE | 2021-01-23 18:48 | NUR ---
PERSONAL CONSULTANT CLOSING NOTES PT IN BED AWAKE AT THIS TIME. A/O X4. ABLE TO MAKE NEEDS KNOWN. ON ROOM AIR, RESPIRATIONS EVEN AND UNLABORED, NO ACUTE RESPIRATORY DISTRESS NOTED DURING SHIFT. IV SL ON RIGHT HAND G# 22 INTACT, PATENT AND FLUSHES WELL. ON EXTERNAL HEAD OF MERCHANDISE BUYING WITH CURRENT READING OF A-FIB UNCONTROLLED, WITH OF HR 105-120, NO C/O CARDIAC DISTRESS VOICED. ALL NEEDS AND CARE ATTENDED WELL. SAFETY MEASURES IN PLACE: BED IN LOWEST LOCKED POSITION, CALL LIGHT AND BEDSIDE TABLE WITHIN REACH. SIDE RAILS UP X2. WILL ENDORSE TO UROLOGY SURGEON NURSE FOR DEE.
--- NOTE | 2021-01-23 19:15 | NUR ---
TELE/RN OPENING NOTES PT AWAKE IN BED, A/O X4, ABLE TO VERBALIZE NEEDS. HE DENIES ANY PAIN AT THIS TIME. RESPIRATIONS EVEN/UNLABORED, ON ROOM AIR. IV SITE: RH #22G INTACT/PATENT/FLUSHES WELL. PT IN NO ACUTE DISTRESS. SAFETY MEASURES IN PLACE, BED IN LOWEST LOCKED POSITION, S/R UPX2, CALL LIGHT WITHIN REACH. WILL CONT TO MONITOR.
[2021-01-23 20:00] VITALS: BP 137/67
[2021-01-24] VITALS: BP 137/66
[2021-01-24 04:00] VITALS: BP 127/75
--- NOTE | 2021-01-24 07:01 | NUR ---
TELE/RN CLOSING NOTES PT RESTING IN BED, EASILY AWAKENS TO STIMULI. HE DENIES ANY PAIN AT THIS TIME. PT SLEPT WELL DURING THE NIGHT. TELE MONITOR READS A-FIB CONTROLLED THIS MORNING, HR 92. NO ACUTE DISTRESS NOTED. SAFETY MEASURES MAINTAINED. ALL NEEDS ATTENDED TO.
--- NOTE | 2021-01-24 08:09 | NUR ---
HAND BUNCH MAKER OPENING NOTES RECEIVED REPORT AT BEDSIDE. Pt AWAKE, CALM, COMMUNICATIVE. STABLE AT THIS TIME. NAD.
[2021-01-24 08:38] VITALS: BP 153/86
[2021-01-24] MEDS: DILTIAZEM HCL CD 240 MG PO SCH (09:09)
[2021-01-24 12:00] VITALS: BP 115/78
[2021-01-24] MEDS: POLYVINYL ALCOHOL 15 ML BOTTLE EACHEYE PRN (12:27)
[2021-01-24] MEDS: DIGOXIN 0.125 MG TABLET PO SCH (13:07)
[2021-01-24 15:42] VITALS: BP 130/66
--- NOTE | 2021-01-24 18:34 | NUR ---
SEED ANALYSIS LABORATORY ASSISTANT CLOSING NOTES: Pt COOPERATIVE WITH CARE. DEMONSTRATES ANXIOUS EPISODES, INTERMITTENTLY AND MANAGED EFFECTIVELY WITH THERAPEUTIC COMMUNICATION. FREQUENT REQUESTS FOR ALTERNATIVE FOODS AT MEALTIMES R/T PREFERENCE. TELE READING: AFIB 80'S - 90'S. CXR PENDING. Pt DEMONSTRATES NAD AND IS STABLE AT THIS TIME. WILL ENDORSE TO ONCOMING NURSE.
--- NOTE | 2021-01-24 19:30 | NUR ---
MANAGER CREDIT RISK OPENING NOTES RECEIVED PATIENT AWAKE LAYING IN BED. PATIENT IS A/O X3-4. PATIENT IS STABLE ON ROOM AIR. SALINE LOCK NOTED IN R HAND, WHICH IS INTACT, PATENT, AND FLUSHING WELL. PATIENT'S CONNECTED TO A TELE MONITOR SHOWING NO CARDIAC DISTRESS AT THIS TIME. PATIENT'S IN NO ACUTE DISTRESS AT THIS TIME. SAFETY MEASURES IN PLACE: BED LOCKED, BED ALARM ON, SR UPX3, AND CALL LIGHT WITHIN REACH OF THE PATIENT. WILL CONTINUE TO MONITOR THE PATIENT.
[2021-01-24 21:52] VITALS: BP 132/71
[2021-01-25] VITALS: BP 130/55
[2021-01-25 04:00] VITALS: BP 138/66
--- NOTE | 2021-01-25 06:35 | NUR ---
SCHOOL TRAFFIC GUARD CLOSING NOTES PATIENT WAS SEEN SLEEPING IN BED. PATIENT IS A/O X3-4. PATIENT IS STABLE ON ROOM AIR. SALINE LOCK NOTED IN R HAND G#22 WHICH IS INTACT, PATENT, AND FLUSHING WELL. PATIENT'S CONNECTED TO A TELE MONITOR SHOWING CONTROLLED A-FIB WITH A HR OF 80BPM. PATIENT'S IN NO ACUTE DISTRESS AT THIS TIME. SAFETY MEASURES IN PLACE: BED LOCKED, BED ALARM ON, SR UPX3, AND CALL LIGHT WITHIN REACH OF THE PATIENT. WILL ENDORSE CARE TO THE DAY SHIFT NURSE.
--- NOTE | 2021-01-25 07:42 | NUR ---
LOSS CONTROL TECHNICIAN OPENING NOTES RECEIVED PATIENT SLEEPING IN BED. NOT IN ANY DISTRESS AT THIS TIME. PATIENT IS STABLE ON ROOM AIR. SALINE LOCK NOTED IN R HAND G#22 WHICH IS INTACT, PATENT, AND FLUSHING WELL. PATIENT'S CONNECTED TO A TELE MONITOR. SAFETY MEASURES IN PLACE: BED LOCKED, BED ALARM ON, SR UPX3, AND CALL LIGHT WITHIN REACH OF THE PATIENT. WILL CONTINUE TO MONITOR.
[2021-01-25 08:00] VITALS: BP 130/70
[2021-01-25] MEDS: DILTIAZEM HCL CD 240 MG PO SCH (08:44)
[2021-01-25] MEDS: DIGOXIN 0.125 MG TABLET PO SCH (12:59)
[2021-01-25 16:00] VITALS: BP 125/60
[2021-01-25] MEDS: POLYVINYL ALCOHOL 15 ML BOTTLE EACHEYE PRN (17:09)
--- NOTE | 2021-01-25 18:21 | NUR ---
MANAGER INTERNET RETAILS SALES CLOSING NOTES PATIENT IN BED RESTING A/O X3-4. PATIENT IS STABLE ON ROOM AIR. SALINE LOCK NOTED IN R HAND G#22 WHICH IS INTACT, PATENT. PATIENT'S CONNECTED TO A TELE MONITOR SHOWING CONTROLLED A-FIB WITH A HR OF 90 BPM. PATIENT'S IN NO ACUTE DISTRESS AT THIS TIME. SAFETY MEASURES IN PLACE: BED LOCKED, BED ALARM ON, SR UPX3, AND CALL LIGHT WITHIN REACH .WILL ENDORSE CARE TO THE NEXT SHIFT
--- NOTE | 2021-01-25 19:30 | NUR ---
EDUCATIONAL TECHNOLOGY COORDINATOR NOTES RECEIVED ON BED A/O X3-4,BREATHING REGULAR,NOT IN ANY FORM OF DISTRESS,SALINE LOCK RIGHT HAND INTACT AND PATENT.PATIENT VERBALIZED HE WISHED TO BE HOME THIS THANKSGIVING, TO BE WITH FAMILY,BUT SITUATION PREVENTED IT.EMOTIONAL SUPPORT INITIATED.CALL LIGHT IN REACH,NEEDS ANTICIPATED.
--- NOTE | 2021-01-25 20:30 | NUR ---
NEEDLE PUNCH MACHINE OPERATOR NOTES BERNADETTE BERGER DID THE EVENING CARE,REPOSITION PATIENT AFTER
[2021-01-25 22:00] VITALS: BP 125/72
[2021-01-26] VITALS: BP 121/85
--- NOTE | 2021-01-26 01:00 | NUR ---
CURTAIN FRAMER NOTES ON BED SLEEPING,NO SOB.KEPT WARM AND COMFORTABLE.
[2021-01-26 04:00] VITALS: BP 135/64
--- NOTE | 2021-01-26 06:15 | NUR ---
LOCKMAKER NOTES NO SIGNIFICANT CHANGE IN STATUS,SLEPT WELL,NO SOB,NO FALL,NO INJURY,IN NO ACUTE DISTRESS.
--- NOTE | 2021-01-26 07:29 | NUR ---
STONE AND PLATE PREPARER APPRENTICE OPENING NOTE Patient in bed, awake. A/O x 3-4. On room air, breathing evenly and unlabored. No SOB or s/s of distress noted. IV access on Right hand #22G, patent, intact, and flushing well. On tele monitoring showing SR, HR on the 70's. Denies any pain or discomfort at this time. Safety precautions in place: bed in low, locked position; siderails up x 2; call light within reach. Will continue to monitor.
[2021-01-26 08:00] VITALS: BP 126/66
[2021-01-26] MEDS: DILTIAZEM HCL CD 240 MG PO SCH (08:22)
[2021-01-26] MEDS: ENSURE ENLIVE 237 ML LIQUID (VANILLA) PO SCH ×2 (10:16→17:09)
[2021-01-26] MEDS ORDERED: HYDR-3972 PO (10:32)
[2021-01-26] MEDS ORDERED: DILT240C88 PO (10:32)
[2021-01-26] MEDS ORDERED: DIGO125T PO (10:32)
[2021-01-26] MEDS: DIGOXIN 0.125 MG TABLET PO SCH (13:14)
[2021-01-26 16:00] VITALS: BP 129/71
--- NOTE | 2021-01-26 18:45 | NUR ---
LEADERSHIP INTERN CLOSING NOTE Patient in bed, awake. A/O x 3-4. Stable on room air, no SOB or s/s of distress noted. IV access on Right hand #22G, patent, intact, and flushes well. Denies any pain or discomfort at this time. Back brace delivered and at bedside. Safety precautions maintained: bed in low, locked position; siderails up x 2; call light within reach. Will endorse to roof promenade tile setter nurse for DEE. Addendum: 01/26/21 at 1848 by RANDELL JOHNSON RN Correction: MS RN CLOSING NOTE
--- NOTE | 2021-01-26 19:38 | NUR ---
MS RN NOTES RECEIVED RESTING COMFORTABLY ON BED,A/O X3-4,BREATHING REGULAR,NOT IN ANY FORM OF DISTRESS,SALINE LOCK RIGHT HAND INTACT AND PATENT.DENIES DISCOMFORTS AT THE MOMENT,BACK BRACE AT BEDSIDE.CALL LIGHT IN REACH,NEEDS ANTICIPATED.
[2021-01-26 20:00] VITALS: BP 137/62
--- NOTE | 2021-01-27 06:39 | NUR ---
MS RN NOTES NO SIGNIFICANT CHANGE IN STATUS,STABLE THRU OUT SHIFT.POSSIBLE DISCHARGE TO HOME.
--- NOTE | 2021-01-27 07:13 | NUR ---
RN OPENING NOTE RECEIVED PATIENT IN BED. A/O X3-4. ABLE TO MAKE NEEDS KNOWN. ON ROOM AIR, DENIES SOB. IN NO APPARENT DISTRESS. NO REPORTS OF PAIN AT THIS TIME. IV ACCESS ON R HAND #22 G, INTACT AND PATENT. SAFETY MEASURES MAINTAINED. BED IN LOWEST POSITION, BRAKES LOCKED. SIDE RAILS UP X2. CALL LIGHT WITHIN REACH. WILL CONTINUE PLAN OF CARE.
[2021-01-27 08:00] VITALS: BP 128/70
[2021-01-27] MEDS: ENSURE ENLIVE 237 ML LIQUID (VANILLA) PO SCH ×2 (08:17→16:55)
[2021-01-27] MEDS: DILTIAZEM HCL CD 240 MG PO SCH (08:19)
[2021-01-27] MEDS: DIGOXIN 0.125 MG TABLET PO SCH (12:27)
--- NOTE | 2021-01-27 14:51 | NUR ---
RN NOTE GAVE REPORT TO WAYNE POOLE FROM [facility]
[2021-01-27 16:00] VITALS: BP 114/66
--- NOTE | 2021-01-27 18:24 | NUR ---
DISCHARGE NOTE PATIENT WAS DISCHARGED. PICKED UP BY 2 EMT'S VIA POLY. DISCHARGE INSTRUCTIONS AND HEALTH TEACHING WAS GIVEN. PT VERBALIZED UNDERSTANDING. REMOVED ID [id number] AND IV ACCESS. BELONGINGS WAS GIVEN TO THE THE PT. ALL FORMS SIGNED.
== END 2021-01-27 18:20 | DRG 308 ==
LOC: ER 18:50 → TRANSITION 01-21 13:53 → OBSVTOIN 01-21 13:53 → TELE 01-21 17:45 → MED 01-26 09:46
PROVIDERS: ADMIT Nurse Practitioner Acute Care; ATTEND Internal Medicine
DX: I49.9 Cardiac arrhythmia, unspecified (principal); K72.00 Acute and subacute hepatic failure without coma; E44.1 Mild protein-calorie malnutrition; M48.56XA Collapsed vertebra, not elsewhere classified, lumbar region, initial encounter for fracture; I50.20 Unspecified systolic (congestive) heart failure; J90 Pleural effusion, not elsewhere classified; E86.0 Dehydration; I11.0 Hypertensive heart disease with heart failure; Z88.0 Allergy status to penicillin; Z79.899 Other long term (current) drug therapy; R74.01 Elevation of levels of liver transaminase levels; Z95.0 Presence of cardiac pacemaker; Z91.81 History of falling; I35.2 Nonrheumatic aortic (valve) stenosis with insufficiency; M48.10 Ankylosing hyperostosis [Forestier], site unspecified; W05.0XXA Fall from non-moving wheelchair, initial encounter; Y92.009 Unspecified place in unspecified non-institutional (private) residence as the place of occurrence of the external cause; K76.1 Chronic passive congestion of liver
CPT/HCPCS: 36415; 70450-TC; 71045-TC; 72125-TC; 72128-TC; 76604-TC; 80048-TC; 80053-TC; 80076-TC; 80162-TC; 82550-TC; 83735-TC; 83880; 84100-TC; 84484-TC; 85025-TC; 85730-TC; 87081-TC; 93307-TC; 97112-TC; 97530-TC; C9803; G0378; J2270; J2405